=== PATIENT | female | born 1945 | race Two or more races ===

== ENCOUNTER 2023-01-24 13:27 | Outpatient (REF) | payer MEDICARE, OTHER, SELFPAY ==
--- NOTE | ~2023-01-24 | US_ITS ---
EXAMINATION: US RETROPERITONEAL LIMITED (RENAL ONLY) CLINICAL INFORMATION: Chronic kidney disease, stage 4. COMPARISON: None available. TECHNIQUE: Real-time imaging of the kidneys. Limited visualization due to bowel gas. FINDINGS: RIGHT KIDNEY: 9.9 x 4.3 x 5.1 cm (SAG x AP x TRV). No hydronephrosis. No renal calculi. Limited visualization. Increased renal echogenicity. Diffuse renal cortical thinning. Right renal 1.4 x 1.3 x 1.2 cm upper pole cyst with benign features. There is no indication for follow up imaging. LEFT KIDNEY: 10.3 x 4.6 x 4.1 cm (SAG x AP x TRV). Diffuse renal cortical thinning. Increased renal echogenicity. No hydronephrosis. No renal calculi. Limited visualization. US/US renal BI IMPRESSION: 1. Bilateral diffuse renal cortical thinning. 2. Increased renal echogenicity is characteristic of chronic kidney disease. 3. No hydronephrosis. No renal calculi.
== END 2023-01-24 13:28 | disposition home or self-care (01) ==
LOC: HO.HMGCX 13:27
PROVIDERS: PCP Physician Assistant Medical; Visit Provider Student in an Organized Health Care Education/Training Program
DX: N18.4 Chronic kidney disease, stage 4 (severe) (principal)
CPT/HCPCS: 76775